=== PATIENT | male | born 1980 | race Caucasian/White ===

== ENCOUNTER 2022-12-31 09:11 | Outpatient (CLI) | payer OTHER, SELFPAY | END 2022-12-31 09:12 | disposition home or self-care (01) | PROVIDERS: PCP Family Medicine; Visit Provider Family Medicine | DX: Z00.00 Encounter for general adult medical examination without abnormal findings (principal); R53.83 Other fatigue; F41.9 Anxiety disorder, unspecified; Z13.6 Encounter for screening for cardiovascular disorders; Z77.011 Contact with and (suspected) exposure to lead | CPT/HCPCS: 80053; 80061; 83655; 84443 ==

== ENCOUNTER 2023-02-05 19:30 | Outpatient (CLI) | payer OTHER, SELFPAY ==
--- NOTE | 2023-02-18 08:58 | W.PM.SLEEP ---
Sleep Study Details Details Interpreting Provider: Esperanza Date of Sleep Study: 02/05/23 Sleep Study Details: STUDY TYPE:? Home unattended ? BMI:? 21.6 ORDERING PROVIDER:? Loyd INDICATION:? Concerns about sleep apnea ? SLEEP SUMMARY:? 536 minutes monitored RESPIRATORY SUMMARY:? AHI 14.2, supine 25.8, left lateral 3.7, right lateral 7.9 Low oxygen 86 0.6% of study oxygen less than 90% Snoring 0.3% PERIODIC LIMB MOVEMENTS OF SLEEP:? Not recorded during home study CARDIAC:? Range 44-95, mean 57.9 beats per minute IMPRESSION:? Mild obstructive sleep apnea with supine position dependency RECOMMENDATION: Treatment options include AutoSet CPAP, dental appliance and/or airway expansion surgery.
== END 2023-02-05 19:31 | disposition home or self-care (01) ==
PROVIDERS: PCP Family Medicine; Visit Provider Family Medicine
DX: G47.33 Obstructive sleep apnea (adult) (pediatric) (principal)
CPT/HCPCS: 95806

== ENCOUNTER 2024-01-15 08:13 | Outpatient (CLI) | payer OTHER, SELFPAY ==
--- OUTSIDE RECORDS SUMMARY | 2024-01-15 14:21 | XMS_ITS | Referral Summary ---
Author Organization [place] Address [address] [place] [address]. [place] [address] Care Team Providers Care Industrial Chemicals Supervisor Name Role Phone No Ref-Primary, Physician Primary Care Provider Encounters Date Type Department Care Team Description 11/16/2023 Travel 11/16/2023 4:05 PM CDT Office Visit [facility] [place] [id number] [place] [phone] Breana Mendoza MD Swelling of right side of face (Primary Dx); Congestion of paranasal sinus from Last 3 Months Medications No known medications Active Problems No known active problems Social History Tobacco Use Types Packs/Day Years Used Date Smoking Tobacco: Never Smokeless Tobacco: Never Tobacco Cessation:Counseling Given: Not Answered Sex and Gender Information Value Date Recorded Sex Assigned at Not on file 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 Gender Identity Not on file Sexual Orientation Not on file Last Filed Vital Signs Vital Sign Reading Time Taken Comments Blood Pressure 135/79 11/16/2023 4:16 PM CDT Pulse 70 11/16/2023 4:16 PM CDT Temperature 36.6 ??C (97.8 ??F) 11/16/2023 4:16 PM CD T Respiratory Rate - - Oxygen Saturation 96% 11/16/2023 4:16 PM CDT Inhaled Oxygen Concentration - - Weight 68 kg (150 lb) 11/16/2023 4:16 PM CDT Height - - Body Mass Index - - Plan of Treatment Not on file Insurance [facility] COMMERCIAL [facility] COMM[facility]CIAL Care Teams Industrial Chemicals Supervisor Relationship Specialty Start Date End Date No Ref-Primary, Physician PCP - General 11/16/23
--- OUTSIDE RECORDS SUMMARY | 2024-01-15 14:21 | XMS_ITS | Clinical Summary ---
Author Organization [place] Address [address] [place] [address]. [place] [address] Care Team Providers Care Child Guidance Counselor Name Role Phone No Ref-Primary, Physician Primary Care Provider Medications No known medications Active Problems No known active problems Encounters Date Type Department Care Team Description 11/16/2023 4:05 PM CDT Office Visit [facility] Urgent [facility] [address] [place] [address] Breana Mendoza MD Swelling of right side of face (Primary Dx); Congestion of paranasal sinus 11/16/2023 Travel from Last 3 Months Social History Tobacco Use Types Packs/Day Years Used Date Smoking Tobacco: Never Smokeless Tobacco: Never Tobacco Cessation:Counseling Given: Not Answered Sex and Gender Information Value Date Recorded Sex Assigned at Not on file Legal Sex Male 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 Gender Identity Not on file Sexual Orientation [...] Mass Index - - Plan of Treatment Health Maintenance Due Date Last Done Comments ADVANCE CARE PLANNING 1979 ANNUAL REVIEW OF HM ORDERS 1979 GLUCOSE 1979 HIV SCREENING 06/14/1994 HEPATITIS C SCREENING 06/14/1997 LIPID 2019 YEARLY PREVENTIVE VISIT 06/26/2021 06/26/2020 PHQ-2 (once per calendar year) 2023 COVID-19 Vaccine ( season) 2023 12/31/2022, 01/31/2021, 07/15/2020, Additional history exists INFLUENZA VACCINE (#1) 2023 3, 01/03/2021, 11/16/2019, Additional history exists DTAP/TDAP/TD IMMUNIZATION (9 - Td or Tdap) 08/29/2025 08/30/2015, 08/08/2009, 08/08/2009, Additional history exists RSV VACCINE (1 - 1-dose 75+ series) 06/14/2054 HEPATITIS B IMMUNIZATION Completed 999, 09/01/1998, 07/25/1998, Additional history exists HPV IMMUNIZATION Aged Out No longer e ligible based on patient's age to complete this topic MENINGITIS IMMUNIZATION Aged Out No l onger eligible based on patient's age to complete this topic Pneumococcal Vaccine: Pediatrics (0 to 5 Years) and At-Risk Patients (6 to 64 Years) Aged Out No longer eligible based on patient's age to complete this topic RSV MONOCLONAL ANTIBODY Aged Out No l onger eligible based on patient's age to complete this topic Insurance [facility] COMMERCIAL [facility] COMM[facility]CIAL Care Teams Child Guidance Counselor Relationship Specialty Start Date End Date No Ref-Primary, Physician PCP - General 11/16/23
--- OUTSIDE RECORDS SUMMARY | 2024-01-15 14:21 | XMS_ITS | Encounter Summary ---
Author Organization [place] Address [address] [place] [address]. 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
--- OUTSIDE RECORDS SUMMARY | 2024-01-15 14:21 | XMS_ITS | Clinical Summary ---
Author Organization [facility] Address [address], [place] [address] Care Team Providers Care Rv Repair Technician Name Role Phone Svetlana Gomez MD Primary Care Provider [phone] Source Comments You are receiving this document as you are listed as the primary care provider,follow-up provider, or the patient has been referred to you for consultation.This is in compliance with the Medicare andMedicaid EHR Incentive Program,which states Providers who transition their patient to another setting of careor provider of care or refers their patient to another provider of care shouldprovide summary care record for each transition of care or referral. [facility] Allerg[facility] Active Allergy Reactions Criticality Noted Date Comments Gabapentin Other, see comments 03/05/2016 Could not ejaculate and also had vertigo Nortriptyline Dizziness 03/28/2016 Medications No known medications Active Problems Problem Noted Date Diagnosed Date Anxiety and depression 04/29/2022 H/O degenerative disc disease 04/29/2022 Overview (04/29/2022): lumbar Immunizations Name Administration Dates Next Due DTP 07/14/1984, 2,01/02/1980,1979,1979 DTaP 07/14/1984, 2,01/02/1980,1979,1979 Flu Vac (3+ yrs) 03/10/2015, 4,11/11/2012,2011,12/25/2010,11/30/2009,01/07/1996 Flu Vac Preserv Free (3+yrs) 01/17/2014,12/06/19 12 HepB Ped/Adol (0-18 yrs) 02/28/1999,04/1998,07/25/1998,1987 HepB, Unspecified Formulation 02/28/1999 ,09/01/1998,07/25/1998,1987 Influenza IIV4 (Quadrivalent ) 0.5mL (99803) 01/03/2021,11/16/2019,12/17/2018,2017,11/25/2016,01/18/2016 Influenza LAIV (Nasal, 2-49 yrs) 02/01/2009 Influenza LAIV3 2-49 years (Flumist) 02/01/2009 Influenza, Whole 01/07/1996 MMR 10/19/1991,08/09/1980 Moderna Monovalent 12+ 01/31/2021 OPV, Trivalent (Orimune or tOPV) 985,04/23/1981,1979,1979 OPV, Unspecified Formulation 04/16/1984, 04/23/1981,1979,1979 Pfizer Monovalent 12+ Purple Top 07/15/2020,06/02 Polio, Unspecified Formulation 5,04/23/1981,1979,1979 Td 08/08/2009,11/04/2000,06/26/1993 Td, Preservative Free 08/30/2015 Tdap 08/08/2009 Family History Medical History Relation Name Comments Anxiety Father Liver Disease Father Cancer, Kidney Maternal Grandmother Cancer, Kidney Maternal Uncle Cancer, Prostate Paternal Grandfather Relation Name Status Comments Father Maternal Grandmother Maternal Uncle Paternal Grandfather Social History Tobacco Use Types Packs/Day Years Used Date Smoking Tobacco: Never Passive Smoke Exposure: Past Smokeless Tobacco: Never Tobacco Cessation:Counseling Given: Not Answered Alcohol Use Standard Drinks/Week Comments Not Currently 0 (1 standard drink = 0.6 oz pure alcohol) developed alcohol aversion in 2020 (prev. 2 drinks/day) PHQ-2 Answer Date Recorded PHQ-2 Score 6 06/21/2022 Financial Resource Strain Answer Date R ecorded Is it hard for you to pay fo r the very basics like food, housing, medical care or heating? No 06/19/2022 Food Insecurity Answer Date Recorded Does your food run out before you have the money to buy more? No 06/19/2022 Transportation Needs Answer Date Record ed Does a lack of transportatio n keep you from your medical appointments or from getting your medications? No 023 Sex and Gender Information Value Date Recorded Sex Assigned at Not on file Gender Identity Not on file Sexual Orientation Not on file Last Filed Vital Signs Vital Sign Reading Time Taken Comments Blood Pressure 109/62 07/01/2022 10:52 AM CDT Pulse 57 07/01/2022 10:52 AM CDT Temperature 36.6 ??C (97.8 ??F) 07/01/2022 10:52 AM C DT Respiratory Rate 16 07/01/2022 10:52 AM CDT Oxygen Saturation 97% 07/01/2022 10:52 AM CDT Inhaled Oxygen Concentration - - Weight 71.2 kg (157 lb) 07/01/2022 10:52 AM CDT Height 179.1 cm (5' 10.5) 06/21/2022 9:21 AM CD T Body Mass Index 22.21 06/21/2022 9:21 AM CDT Plan of Treatment Health Maintenance Due Date Last Done Comments Adult Preventive Visit 06/14/1997 COVID-19 Vaccine ( season) 2023 01/31/2021, 07/15/2020, 06/24/2020 Influenza (#1) 2023 01/03/2021, 11/01, 12/17/2018, Additional history exists DTaP/Tdap/Td (9 - Tdap) 08/29/2025 08/30/19 16, 08/08/2009, 08/08/2009, Additional history exists Cholesterol 06/22/2027 06/21/2022 Zoster/Shingles (1 of 2) 06/14/2029 IPV (Polio) Completed 04/16/1984, 04/03, 04/16/1984, Additional history exists HepB Completed 02/28/1999, 02/01, 09/01/1998, Additional history exists HIV Screening (Preventive Services) Completed 06/21/2022 Hep C Screening (Preventive Services) Completed 06/21/2022 HPV Vaccine Aged Out No longer eligi ble based on patient's age to complete this topic HepA Aged Out No longer eligi ble based on patient's age to complete this topic Hib Aged Out No longer eligi ble based on patient's age to complete this topic Infant RSV Aged Out No longer eligi ble based on patient's age to complete this topic MCV4 Aged Out No longer eligi ble based on patient's age to complete this topic Pneumococcal Aged Out No longer eligi ble based on patient's age to complete this topic Procedures Procedure Name Priority Date/Time Associated Diagnosis Comments HIV 1/2 AG/AB 4TH GEN Routine 06/21/2022 9:56 AM CDT Encounter for screening for HIV HEPATITIS C ANTIBODY, WITH REFLEX Routine 06/21/2022 9:56 AM CDT Need for hepatitis C screening test LIPID PANEL & DIRECT LDL (IF NEEDED) Routine 06/21/2022 9:56 AM CDT Lipid screening from Last 3 Months or Most Recently Relevant to Health Maintenance Results * HIV 1/2 Ag/Ab 4th Generation (06/21/2022 9:56 AM CDT) HIV 1/2 Antigen/Antib juan (4th generation) Negative (Non Reactive) Negative (Non Reactive) 06/21/2022 12:10 PM CDT [facility] Comment:HIV-1 p24 Antigen an d HIV-1/HIV-2 Antibody not detected Blood Venipuncture / Unknown 06/21/2022 9:56 AM CDT 06/21/2022 9:56 AM CDT Svetlana Gomez MD LAB_1 [facility] [address] [place] [address], [facility] [phone] * Lipid Panel and Direct LDL(If Needed) (06/21/2022 9:56 AM CDT) Cholesterol 185 0 - 199 mg/dL 06/21/2022 10:31 AM CDT [facility] Triglyceride 72 <=149 mg/dL 06/21/2022 10:31 AM CDT [facility] HDL Cholesterol 59 >=40 mg/dL 3 10:31 AM CDT [facility] LDL, Calculated 112 <130 mg/dL 3 10:31 AM CDT [facility] Non HDL Chol, Calculated 126 <=159 mg/dL 06/21/2022 10:31 AM CDT [facility] Cholesterol/HDL Ratio 3.1 06/21/2022 10:31 AM CDT [facility] Hours Fasting 2 06/21/2022 10:31 AM CDT [facility] Blood Venipuncture / Unknown 06/21/2022 9:56 AM CDT 06/21/2022 9:56 AM CDT Svetlana Gomez MD LAB_1 Performing Organization Address City/[facility]/ZIP Co de Phone Number [facility] [address] [place], [place] [address] [phone] * Hepatitis C Antibody, with Reflex (06/21/2022 9:56 AM CDT) Hepatitis C Antibody Negative (Non Reactive) Negative (Non Reactive) 06/21/2022 1:51 PM CDT [facility] Comment:Antibodies to HCV no t detected. Does not exclude the possiblity of exposure to HCV. Blood Venipuncture / Unknown 06/21/2022 9:56 AM CDT 06/21/2022 9:56 AM CDT Svetlana Gomez MD LAB_1 [facility] [address] [address], [facility] [phone] from Last 3 Months or Most Recently Relevant to Health Maintenance Care Teams Rv Repair Technician Relationship Specialty Start Date End Date Svetlana Gomez MD [address] [place] [address] PCP - General Family Practice 06/27/22
--- OUTSIDE RECORDS SUMMARY | 2024-01-15 14:21 | XMS_ITS | Encounter Summary ---
Author Organization [place] Address [address] [place] [address]. [place] [address] Care Team Providers Care Director Professional Services Name Role Phone No Ref-Primary, Physician Primary Care Provider Reason for Visit * Reason Comments Sinus Problem Swollen right side o f face, pain on cheek bone, Encounter Details Date Type Department Care Team (Late st Contact Info) Description 11/16/2023 4:05 PM CDT Office Visit [facility] [address] [phone] Breana Mendoza MD [address] [facility] [address] [place] [address] Swelling of right side of face (Primary Dx); Congestion of paranasal sinus Social History Tobacco Use Types Packs/Day Years Used Date Smoking Tobacco: Never Smokeless Tobacco: Never Tobacco Cessation:Counseling Given: Not Answered Sex and Gender Information Value Date Recorded Sex Assigned at Not on file 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 Diagnoses and all orders for this visit: Swelling of right side of face - amoxicillin-clavulanate (AUGMENTIN) 875-125 MG tablet; Take 1 tablet by mouth 2 times daily for 10 days. Congestion of paranasal sinus ASSESSMENT: Swelling of right side of face Congestion of paranasal sinus PLAN: See orders in epic. Symptomatic treat with warm packs and OTC analgesic as needed. Complete the course of the antibiotic Follow-up with primary clinic if not improving. D/d- gum infection, sinusitis , facial cellulitis SUBJECTIVE: Naveen Huston is a 43 year old male with recent URI symptoms presents right side of the face swelling along with thick postnasal drip and the swelling is located over the right lower maxillary area with no redness Onset of symptoms was 3 day(s) ago. Course of illness: sudden onset. Severity moderate Current and Associated symptoms: face swelling, sinus congestion Treatment measures tried include Tylenol/Ibuprofen. Predisposing factors include recent illness . No past medical history on file. Current Outpatient Medications Medication Sig Dispense Refill amoxicillin-clavulanate (AUGMENTIN) 875-125 MG tablet Take 1 tablet by mouth 2 times daily for 10 days. 20 tablet 0 Social History Tobacco Use Smoking status: Never Smokeless tobacco: Never Substance Use Topics Alcohol use: Not on file ROS: Review of systems negative except as stated above. OBJECTIVE: BP 135/79 (BP Location: Right arm, Patient Position: Chair, Cuff Size: Adult Large) Pulse 70 Temp 97.8 ??F (36.6 ??C) (Tympanic) Wt 68 kg (150 lb) SpO2 96% GENERAL APPEARANCE: healthy, alert and no distress EYES: EOMI, PERRL, conjunctiva clear Face -swelling noted to other right face adjacent to the nose over the lower maxillary area there is also tenderness noted in the right posterior gum area. HENT: ear canals and TM's normal. Nose normal. Pharynx no erythema noted. NECK: supple, non-tender to palpation, no adenopathy noted PSYCH: mentation appears normal Breana Mendoza MD documented in this encounter Plan of Treatment Not on file documented as of this encounter Visit Diagnoses Diagnosis Swelling of right side of face- Primary Congestion of paranasal sinus documented in this encounter Care Teams Director Professional Services Relationship Specialty Start Date End Date No Ref-Primary, Physician PCP - General 11/16/23 documented as of this encounter
== END 2024-01-15 08:14 | disposition home or self-care (01) ==
LOC: NFLDREF 14:19
PROVIDERS: PCP Family Medicine; Referring Provider Family Medicine; Visit Provider Family Medicine
DX: Z13.1 Encounter for screening for diabetes mellitus (principal); Z13.6 Encounter for screening for cardiovascular disorders
CPT/HCPCS: 80061; 82947

== ENCOUNTER 2024-01-27 10:48 | Outpatient (CLI) | payer OTHER, SELFPAY ==
--- OUTSIDE RECORDS SUMMARY | 2024-01-27 10:52 | XMS_ITS | Clinical Summary ---
Author Organization [place] Address [address] [place] [address]. [place] [address] Care Team Providers Care Seasonal Customer Service Associate Name Role Phone No Ref-Primary, Physician Primary Care Provider Medications No known medications Active Problems No known active problems Encounters Date Type Department Care Team Description 11/16/2023 4:05 PM CDT Office Visit [facility] Urgent [facility] [address] [place] [address] Breana Mendoza MD Swelling of right side of face (Primary Dx); Congestion of paranasal sinus 11/16/2023 Travel from Last 3 Months Social History Tobacco Use Types Packs/Day Years Used Date Smoking Tobacco: Never Smokeless Tobacco: Never Tobacco Cessation:Counseling Given: Not Answered Sex and Gender Information Value Date Recorded Sex Assigned at Not on file 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
--- OUTSIDE RECORDS SUMMARY | 2024-01-27 10:52 | XMS_ITS | Referral Summary ---
Author Organization [place] Address [address] [place] [address]. 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
--- OUTSIDE RECORDS SUMMARY | 2024-01-27 10:52 | XMS_ITS | Clinical Summary ---
Author Organization [facility] Address [address] [address] Care Team Providers Care Glassblower Name Role Phone Svetlana Gomez MD Primary Care Provider [phone] Source Comments You are receiving this document [...] for each transition of care or referral. [facility] All[facility] Active Allergy Reactions Criticality Noted Date [...] 02/28/1999 ,09/01/1998,07/25/1998,1987 Influenza IIV4 (Quadrivalent ) 0.5mL (35568) 01/03/2021,11/16/2019,12/17/2018,2017,11/25/2016,01/18/2016 Influenza LAIV (Nasal, 2-49 yrs) 02/01/2009 [...] 57 07/01/2022 10:52 AM CDT Temperature 36.6 C (97.8 F) 07/01/2022 10:52 AM CDT Respiratory Rate 16 07/01/2022 10:52 AM CDT [...] patient's age to complete this topic RSV Aged Out No longer eligi ble [...] Negative (Non Reactive) 06/21/2022 12:10 PM CDT [facility] Comment:HIV-1 p24 Antigen an d HIV-1/HIV-2 Antibody not detected Blood Venipuncture / Unknown 06/21/2022 9:56 AM CDT 06/21/2022 9:56 AM CDT Svetlana Gomez MD LAB_1 [facility] [address] [place], [place] [address] [phone] * Lipid Panel and Direct LDL(If Needed) (06/21/2022 9:56 AM CDT) Cholesterol 185 0 - 199 mg/dL 06/21/2022 10:31 AM CDT [facility] Triglyceride 72 <=149 mg/dL 06/21/2022 10:31 AM CDT [facility] HDL Cholesterol 59 >=40 mg/dL 10:31 AM CDT [facility] [...] Svetlana Gomez MD LAB_1 Performing Organization Address City/[facility]/ZIP Co de Phone Number [facility] [address] [place] [address], [facility] [phone] * Hepatitis C Antibody, with Reflex (06/21/2022 9:56 AM CDT) Hepatitis C Antibody Negative (Non Reactive) Negative (Non Reactive) 06/21/2022 1:51 PM CDT [facility] Comment:Antibodies to HCV no t detected. Does not exclude the possiblity of exposure to HCV. Blood Venipuncture / Unknown 06/21/2022 9:56 AM CDT 06/21/2022 9:56 AM CDT Svetlana Gomez MD LAB_1 [facility] [address] [address], [facility] [phone] from Last 3 Months or Most Recently Relevant to Health Maintenance Care Teams Glassblower Relationship Specialty Start Date End Date Svetlana Gomez MD [address] [place] [address] PCP - General Family Practice 06/27/22
--- OUTSIDE RECORDS SUMMARY | 2024-01-27 10:52 | XMS_ITS | Encounter Summary ---
Author Organization [place] Address [address] [place] [address]. 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
--- OUTSIDE RECORDS SUMMARY | 2024-01-27 10:52 | XMS_ITS | Encounter Summary ---
Author Organization [facility] Address [address] [place] [address]. [place] [address] Care Team Providers Care [employer] Name Role Phone No Ref-Primary, Physician Primary Care Provider Reason for Visit * Reason Comments Sinus Problem Swollen right side o f face, pain on cheek bone, Encounter Details Date Type Department Care Team (Late st Contact Info) Description 11/16/2023 4:05 PM CDT Office Visit [facility] [address] [phone] Breana Mendoza MD [address] [facility] [address] [place] [address] Swelling of right side of face (Primary Dx); Congestion of paranasal sinus Social History Tobacco Use Types Packs/Day Years Used Date Smoking Tobacco: Never Smokeless Tobacco: Never Tobacco Cessation:Counseling Given: Not Answered Sex and Gender Information Value Date Recorded Sex Assigned at Not on file 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 Symptomatic treat with warm packs and OTC [...] sinus documented in this encounter Care Teams [facility] [employer] Relationship Specialty Start Date End Date No Ref-Primary, Physician PCP - General 11/16/23 documented as of this encounter
--- NOTE | 2024-01-27 11:00 | CRLHL7_ITS ---
For Patients: As a result of the Century Cures Act, medical imaging exams and procedure reports are released immediately into your electronic medical record. You may view this report before your referring provider. If you have questions, please contact your health care provider. INDICATION: CHRONIC RT ANT CERVICAL LAD, NEW RT CHEEK SWELLING COMPARISON: none TECHNIQUE: A CT volumetric acquisition was performed of the neck during intravenous infusion of 79CC ISOVUE 370 nonionic intravenous contrast. Please note that all CT scans at this facility use dose modulation, iterative reconstruction, and/or weight-based dosing when appropriate to reduce radiation dose to as low as reasonably achievable. FINDINGS: The CT images demonstrate normal aeration of the mastoid air cells and middle ear cavities. The paranasal sinuses are clear. The nasopharynx appears normal. The parotid and submandibular glands are of normal size and have uniform enhancement. The oropharynx appears normal. The valleculae, epiglottis, aryepiglottic folds and piriform sinuses appear normal. There is a normal appearance of the larynx and subglottic trachea. The thyroid gland is of normal size and has uniform density. There is no evidence of lymphadenopathy within the anterior and posterior cervical triangles or within the supraclavicular region. IMPRESSION: Negative neck CT. Please note that all CT scans at this facility use dose modulation, iterative reconstruction, and/or weight-based dosing when appropriate to reduce radiation dose to as low as reasonably achievable. Dictated by Artie Lira MD @ 01/27/2024 12:42:07 PM (Electronically Signed)
== END 2024-01-27 10:49 | disposition home or self-care (01) ==
LOC: CT 10:50
PROVIDERS: PCP Family Medicine; Visit Provider Family Medicine
DX: R59.0 Localized enlarged lymph nodes (principal)
CPT/HCPCS: 70491; Q9967

== ENCOUNTER 2025-01-28 09:30 | Outpatient (CLI) | payer OTHER, SELFPAY | END 2025-01-28 09:31 | disposition home or self-care (01) | LOC: NFLDREF 02-03 01:23 | PROVIDERS: PCP Family Medicine; Referring Provider Family Medicine; Visit Provider Family Medicine | DX: E78.5 Hyperlipidemia, unspecified (principal) | CPT/HCPCS: 80061; 82947 ==

== ENCOUNTER 2025-02-04 12:14 | Outpatient (CLI) | payer OTHER, SELFPAY ==
--- NOTE | 2025-02-04 13:00 | CRLHL7_ITS ---
For Patients: As a result of the Century Cures Act, medical imaging exams and procedure reports are released immediately into your electronic medical record. You may view this report before your referring provider. If you have questions, please contact your health care provider. INDICATION: Neck pain. COMPARISON: 01/27/2024. TECHNIQUE: Sagittal T1, T2, and STIR sequences. Axial T2/gradient sequences. FINDINGS: Normal vertebral body and facet alignment. No fractures. No vertebral body loss of height. No spondylolisthesis. No ligamentous injury. No suspicious osseous lesions. Normal cord signal. No intradural mass or lesion. Marrow edema of the articular processes of the right C4-5 facet joint which may be secondary to stress reaction mild inflammation from facet arthritis. C1-2: No spinal canal narrowing. C2-3: No spinal canal or neural foraminal narrowing. C3-4: No spinal canal or neural foraminal narrowing. C4-5: Mild disc degeneration post disc bulge. No narrowing of spinal canal. Mild narrowing of the right neural foramen. No narrowing of the left neural foramen. C5-6: Disc generation post disc bulging disc osteophyte complex. Mild narrowing of the spinal canal. No neural foraminal narrowing. C6-7: Disc degeneration broad-based disc osteophyte complex. No narrowing of spinal canal. No neural foraminal narrowing. C7-T1: No spinal canal or neural foraminal narrowing. No spinal canal neural foramina narrowing visualized upper thoracic spine. IMPRESSION: 1. Normal alignment. No fractures. 2. Normal cord signal. 3. Marrow edema of the articular processes of the right C4-5 facet joint which may be secondary to stress reaction or mild inflammation. 4. At C4-5, mild narrowing of the right neural foramen 5. At C5-6, mild narrowing of the spinal canal. 6. No spinal canal or neural foraminal narrowing at the remaining levels Dictated by Mundo Howell MD @ 02/04/2025 10:15:10 PM (Electronically Signed)
--- NOTE | 2025-02-04 13:45 | CRLHL7_ITS ---
For Patients: As a result of the Century Cures Act, medical imaging exams and procedure reports are released immediately into your electronic medical record. You may view this report before your referring provider. If you have questions, please contact your health care provider. INDICATION: Thoracic spine pain. COMPARISON: None. TECHNIQUE: Sagittal T1, T2, and STIR sequences. Axial T2/gradient sequences. FINDINGS: Normal vertebral body and facet alignment. No fractures. No vertebral body loss of height. No spondylolisthesis. No ligamentous injury. Normal marrow signal. No suspicious osseous lesions. Normal cord signal. No intradural mass or lesion. Thoracic spondylosis with multilevel disc degeneration. T3-4: Disc degeneration shallow posterior disc bulge. No spinal canal neural foraminal narrowing. T4-5: Disc degeneration. Shallow left paracentral disc bulge. No spinal canal neural foraminal narrowing. T5-6: Disc degeneration and a central disc protrusion measuring approximately 2 millimeters in short axis. No spinal canal neural foraminal narrowing. T6-7: Disc degeneration shallow left paracentral disc bulge. No spinal canal neural foraminal narrowing. T7-8: Disc generation and tiny central disc protrusion. No spinal canal neural foraminal narrowing. No spinal canal or neural foraminal narrowing at remaining levels of the thoracic spine. Normal paraspinal soft tissues. IMPRESSION: 1. Normal alignment. No fractures 2. Normal cord signal. 3. Thoracic spondylosis 4. At T5-6, central disc protrusion. No spinal canal or neural foraminal narrowing. 5. No spinal canal or neural foraminal narrowing at the remaining levels Dictated by Mundo Howell MD @ 02/04/2025 10:17:55 PM (Electronically Signed)
== END 2025-02-04 12:15 | disposition home or self-care (01) ==
LOC: MRI 12:14
PROVIDERS: PCP Family Medicine; Visit Provider Family Medicine
DX: M54.6 Pain in thoracic spine (principal); M47.814 Spondylosis without myelopathy or radiculopathy, thoracic region; M51.24 Other intervertebral disc displacement, thoracic region; M51.34 Other intervertebral disc degeneration, thoracic region
CPT/HCPCS: 72141; 72146

== ENCOUNTER 2025-02-08 11:37 | Outpatient (CLI) | payer OTHER, SELFPAY ==
--- NOTE | 2025-02-08 12:45 | P.ANES_ITS ---
Anesthesia Charges Start Date/Time Anesthesia Start Date: 02/08/25 Anesthesia Start Time: 12:17 Stop Date/Time Anesthesia Stop Date: 02/08/25 Anesthesia Stop Time: 12:45 Coding CPT Codes CPT Codes: ANES LWR INTST NDSC NOS - [id number] ([id number]) P3 - PATIENT W/SEVERE SYS DISEASE, QK - BODY RECALL INSTRUCTOR 2-4 CNCRNT ANES PROC, QX - ROADS AND PARKING LOTS SWEEPER OPERATOR SVC W/ MD MED DIRECTION
--- NOTE | 2025-02-08 12:45 | W.ANESCHARGE ---
Anesthesia Charges Start Date/Time Anesthesia Start Date: 02/08/25 Anesthesia Start Time: 12:17 Stop Date/Time Anesthesia Stop Date: 02/08/25 Anesthesia Stop Time: 12:45 Coding CPT Codes CPT Codes: ANES LWR INTST NDSC NOS - [id number] ([id number]) P3 - PATIENT W/SEVERE SYS DISEASE, QK - GRAIN PACKER 2-4 CNCRNT ANES PROC, QX - ENTERPRISE ACCOUNT MANAGER SVC W/ MD MED DIRECTION
--- NOTE | 2025-02-08 13:12 | P.ANES_ITS ---
Anesthesia Charges Start Date/Time Anesthesia Start Date: 02/08/25 Anesthesia Start Time: 12:17 Stop Date/Time Anesthesia Stop Date: 02/08/25 Anesthesia Stop Time: 12:45 Coding CPT Codes CPT Codes: ANES LWR INTST NDSC NOS - [id number] ([id number]) QK - COFFEE SOMMELIER 2-4 CNCRNT ANES PROC, QX - GUITAR MAKER HAND SVC W/ MED DIRECTION, P3 - PATIENT W/SEVERE SYS DISEASE
--- NOTE | 2025-02-08 13:12 | W.ANESCHARGE ---
Anesthesia Charges Start Date/Time Anesthesia Start Date: 02/08/25 Anesthesia Start Time: 12:17 Stop Date/Time Anesthesia Stop Date: 02/08/25 Anesthesia Stop Time: 12:45 Coding CPT Codes CPT Codes: ANES LWR INTST NDSC NOS - [id number] ([id number]) QK - STUDENT LIFE VICE PRESIDENT 2-4 CNCRNT ANES PROC, QX - WIRELESS STORE MANAGER SVC W/ MED DIRECTION, P3 - PATIENT W/SEVERE SYS DISEASE
== END 2025-02-08 11:38 | disposition home or self-care (01) ==
LOC: OP CLINIC 11:38
PROVIDERS: PCP Family Medicine; Visit Provider Surgery
DX: Z12.11 Encounter for screening for malignant neoplasm of colon (principal); D12.2 Benign neoplasm of ascending colon; Z83.719 Family history of colon polyps, unspecified
CPT/HCPCS: 00811; 00812; 45385; J2704